=== PATIENT | female | born 1980 | race Caucasian/White ===

== ENCOUNTER → 2017-04-07 | Outpatient (CLI) | payer BC ==
[2017-04-07 17:06] LABS: MICROSCOPIC INDICATED? MAN YES (NO)
[2017-04-07 17:08] LABS: BASO # 0.1 10^3/uL (0.0-0.2); BASO % 0.5 % (0.0-1.0); EOS # 0.1 10^3/uL (0.0-0.50); EOS % 0.7 % (0.0-3.0); IMMATURE GRANULOCYTE # 0.2 10^3/uL (0-0); IMMATURE GRANULOCYTE % 1.2 % (0-0); LYMPH # 2.4 10^3/uL (1.5-4.5); MEAN CORPUSCULAR HEMOGLOBIN 28.1 pg (27.0-33.0); MEAN CORPUSCULAR HGB CONC 32.1 g/dl (32.0-36.5); MEAN CORPUSCULAR VOLUME 87.5 fl (80.0-96.0); MONO # 0.8 10^3/uL (0.0-0.8); MONO % 5.7 % (0.0-5.0); NEUTROPHILS % 73.9 % (36.0-66.0); PLATELET COUNT, AUTOMATED 338 10^3/uL (150-450); RED CELL DISTRIBUTION WIDTH 12.9 % (11.5-14.5); WHITE BLOOD COUNT 13.5 10^3/uL (4.0-10.0)
[2017-04-07 17:17] LABS: ALBUMIN 4.2 GM/DL (3.2-5.2); ALBUMIN/GLOBULIN RATIO 1.17 (1.00-1.93); ALKALINE PHOSPHATASE 70 U/L (45-117); ALT/SGPT 45 U/L (12-78); ANION GAP 6 MEQ/L (8-16); AST/SGOT 19 U/L (7-37); BACTERIA, URINE SMALL AMOUNT; BILIRUBIN,TOTAL 0.3 MG/DL (0.2-1.0); BLOOD UREA NITROGEN 17 MG/DL (7-18); CALCIUM LEVEL 9.3 MG/DL (8.5-10.1); CARBON DIOXIDE LEVEL 28 MEQ/L (21-32); CHLORIDE LEVEL 104 MEQ/L (98-107); CREATININE FOR GFR 0.78 MG/DL (0.55-1.02); GLOMERULAR FILTRATION RATE > 60.0 (>60); GLUCOSE, FASTING 92 MG/DL (70-105); HYALINE CAST, URINE NONE SEEN /lpf (0-1); MICROSCOPIC EXAM PERFORMED; POTASSIUM SERUM 4.8 MEQ/L (3.5-5.1); RBC, URINE 0-1 /hpf (0-3); SODIUM LEVEL 138 MEQ/L (136-145); SQUAMOUS EPITHELIAL CELL URINE SMALL AMOUNT /hpf (SMALL AMT); TOTAL PROTEIN 7.8 GM/DL (6.4-8.2); WBC, URINE NONE SEEN /hpf (0-3)
== END ==
LOC: M WUC 11:17
DX: R10.32 Left lower quadrant pain (principal)
CPT/HCPCS: 80053

== ENCOUNTER → 2017-04-07 | Outpatient (CLI) | payer OTHER ==
[~2017-04-07] MED LIST: GASTROGRAFIN SOLUTION 30ML (Q9963) As Ordered; ISOVUE-370 76% 100ML VIAL (Q9967) As Ordered
== END ==
LOC: M RAD 12:23
DX: R10.9 Unspecified abdominal pain (principal)

== ENCOUNTER 2017-06-10 07:54 | Day surgery (SDC) | payer OTHER ==
[2017-06-10] MEDS ORDERED: PROPOFOL 200 MG/20 ML VIAL As Ordered (08:05)
[2017-06-10] MEDS ORDERED: KETOROLAC 60 MG/2 ML VIAL (J1885) As Ordered (08:05)
[2017-06-10] MEDS ORDERED: GLYCOPYRROLATE INJ 0.2 MG/ML 2 ML VIAL As Ordered (08:05)
[2017-06-10] MEDS ORDERED: dexameTHASONE 4 MG/ML 1ML VIAL (J1100) As Ordered (08:05)
[2017-06-10] MEDS ORDERED: ONDANSETRON 4MG/2ML VIAL (J2405) As Ordered (08:05)
[2017-06-10] MEDS ORDERED: LIDOCAINE 2% INJ 100 MG/5 ML SDV (FOR ANES.) As Ordered (08:05)
[2017-06-10] MEDS ORDERED: ROCURONIUM BROMIDE 50 MG/5 ML VIAL As Ordered (08:05)
[2017-06-10] MEDS ORDERED: NEOSTIGMINE 10 MG/10 ML VIAL (J2710) As Ordered (08:05)
[2017-06-10] MEDS ORDERED: fentaNYL 100 MCG/2 ML INJECTION (J3010) As Ordered (08:06)
[2017-06-10] MEDS ORDERED: MIDAZOLAM INJ 2 MG/2 ML VIAL (J2250) As Ordered (08:06)
[2017-06-10] MEDS: LR 1,000 ML IV ×3 (08:50→16:25)
[2017-06-10] MEDS ORDERED: HYDROmorphone HCL 2 MG/ML 1ML VIAL (J1170) As Ordered (08:54)
[2017-06-10 09:08] LABS: CONTROL LINE UCG INT CTR LINE PRESENT; URINE PREG TEST NEGATIVE (NEGATIVE)
[2017-06-10] MEDS: BUPIVACAINE LIPOSOME/PF 1.3% 20 ML VIAL (13.3MG/ML)(EXPAREL) As Ordered (11:01)
[2017-06-10] MEDS: BUPIVACAINE HCL 0.25% 30 ML VIAL As Ordered (11:02)
[2017-06-10] MEDS ORDERED: IBUPROFEN 600 MG TAB PO (11:45)
[2017-06-10] MEDS ORDERED: MORPHINE 10 MG/ML 1ML VIAL (J2270) IV (11:45)
[2017-06-10] MEDS: PERCOCET 5MG/325MG TAB PO ×2 (11:45→12:16)
[2017-06-10] MEDS ORDERED: ACETAMINOPHEN TAB 650MG DOSE (2X325MG) PO (11:45)
[2017-06-10] MEDS: fentaNYL 100 MCG/2 ML INJECTION (J3010) IV ×4 (11:57→12:15)
[2017-06-10] MEDS: ONDANSETRON 4MG/2ML VIAL (J2405) IV (12:15)
[2017-06-10] MEDS: METOCLOPRAMIDE INJ 10MG/2ML VIAL (J2765) IV (12:37)
[2017-06-10] MEDS: PROMETHAZINE INJ 25 MG/ML VIAL (J2550) IV (16:17)
[2017-06-10] MEDS: NORCO, ANEXSIA 5/325MG TABLET (HYDROcodone/ACETAMINOPHEN) PO (19:00)
== END 2017-06-10 20:00 | disposition home or self-care (01) ==
LOC: M OPP 07:54 → M SDC 07:54
DX: K80.18 Calculus of gallbladder with other cholecystitis without obstruction (principal); I10 Essential (primary) hypertension; F32.9 Major depressive disorder, single episode, unspecified; F41.9 Anxiety disorder, unspecified; E66.9 Obesity, unspecified; M41.9 Scoliosis, unspecified; Z79.899 Other long term (current) drug therapy
CPT/HCPCS: 47562

== ENCOUNTER 2017-06-13 17:32 | Inpatient (IN) | payer OTHER ==
[2017-06-13 18:08] LABS: BASO # 0.1 10^3/uL (0.0-0.2); BASO % 0.3 % (0.0-1.0); EOS # 0.1 10^3/uL (0.0-0.50); EOS % 0.5 % (0.0-3.0); HEMOGLOBIN 13.3 g/dl (12.0-16.0); IMMATURE GRANULOCYTE % 0.5 % (0-3.0); LYMPH # 2.3 10^3/uL (1.5-4.5); LYMPH % 13.4 % (24.0-44.0); MEAN CORPUSCULAR HEMOGLOBIN 28.2 pg (27.0-33.0); MEAN CORPUSCULAR HGB CONC 33.3 g/dl (32.0-36.5); MEAN CORPUSCULAR VOLUME 84.9 fl (80.0-96.0); MONO # 1.3 10^3/uL (0.0-0.8); MONO % 7.5 % (0.0-5.0); NEUTROPHILS # 13.2 10^3/uL (1.8-7.7); NEUTROPHILS % 77.8 % (36.0-66.0); PLATELET COUNT, AUTOMATED 296 10^3/uL (150-450); RED BLOOD COUNT 4.71 10^6/uL (4.00-5.40); RED CELL DISTRIBUTION WIDTH 12.2 % (11.5-14.5); WHITE BLOOD COUNT 16.9 10^3/uL (4.0-10.0)
[2017-06-13 18:20] LABS: INR 1.01; PROTHROMBIN TIME 13.4 SECONDS (12.4-14.5)
[2017-06-13 18:21] LABS: PARTIAL THROMBOPLASTIN TIME 28.2 SECONDS (26.8-37.9)
[2017-06-13] MEDS: NS 1,000 ML IV (19:26)
[2017-06-13] MEDS: PROMETHAZINE INJ 25 MG/ML VIAL (J2550) IV (19:30)
[2017-06-13] MEDS: HYDROmorphone HCL 1 MG/ML SYRINGE (J1170) IV ×2 (19:31→21:03)
[2017-06-13 20:51] LABS: CONTROL LINE HCG INT CTR LINE PRESENT; HCG, SERUM QUALITATIVE NEGATIVE (NEGATIVE)
[2017-06-13] MEDS ORDERED: ISOVUE-370 76% 100ML VIAL (Q9967) As Ordered (20:57)
[2017-06-13 21:00] LABS: ALBUMIN 3.9 GM/DL (3.2-5.2); ALBUMIN/GLOBULIN RATIO 1.05 (1.00-1.93); ALKALINE PHOSPHATASE 83 U/L (45-117); ALT/SGPT 93 U/L (12-78); ANION GAP 6 MEQ/L (8-16); AST/SGOT 56 U/L (7-37); BILIRUBIN,DIRECT 0.4 MG/DL (0.0-0.2); BILIRUBIN,TOTAL 1.1 MG/DL (0.2-1.0); BLOOD UREA NITROGEN 11 MG/DL (7-18); CALCIUM LEVEL 8.8 MG/DL (8.5-10.1); CARBON DIOXIDE LEVEL 30 MEQ/L (21-32); CHLORIDE LEVEL 104 MEQ/L (98-107); CPK CREATINE PHOSPHOKINASE 41 U/L (26-192); CREATININE FOR GFR 0.76 MG/DL (0.55-1.30); GLOMERULAR FILTRATION RATE > 60.0 (>60); GLUCOSE, FASTING 109 MG/DL (70-100); LIPASE 63 U/L (73-393); MB/CK RELATIVE INDEX 2.43 (< OR =4); POTASSIUM SERUM 4.3 MEQ/L (3.5-5.1); SODIUM LEVEL 140 MEQ/L (136-145); TOTAL PROTEIN 7.6 GM/DL (6.4-8.2); TROPONIN I < 0.02 NG/ML (< 0.10)
[2017-06-13] MEDS: DULoxetine 30 MG CAP (CYMBALTA) PO (21:00)
[2017-06-13] MEDS: PIPERACILLIN/TAZOBACTAM SOD 4.5 GM in D5W MINI-BAG PLUS 50 ML IV (22:45)
[2017-06-13] MEDS: VANCOMYCIN HCL 1,000 MG, VIAL MATE ADAPTER 1 EACH in D5W 250 ML IV (22:45)
[2017-06-14] MEDS: HYDROmorphone HCL 1 MG/ML SYRINGE (J1170) IV (00:13)
[2017-06-14] MEDS: NS 1,000 ML IV ×3 (00:16→17:00)
[2017-06-14] MEDS ORDERED: ACETAMINOPHEN TAB 650MG DOSE (2X325MG) PO (00:30)
[2017-06-14 00:50] LABS: C REACTIVE PROTEIN QUANTITATIV 1.53 MG/DL (0.00-0.30)
[2017-06-14] MEDS: PERCOCET 5MG/325MG TAB PO ×3 (02:05→19:18)
[2017-06-14] MEDS: ONDANSETRON 4MG/2ML VIAL (J2405) IV ×3 (02:06→19:17)
[2017-06-14 02:26] LABS: ERYTHROCYTE SEDIMENTATION RATE 45 mm/hr (0-20)
[2017-06-14 02:28] LABS: LACTIC ACID SEPSIS PROTOCOL 1.6 MMOL/L (0.4-2.0)
[2017-06-14] MEDS: MORPHINE 4 MG/ML 1ML VIAL (J2270) IV ×7 (03:18→21:45)
[2017-06-14 04:23] LABS: ALBUMIN 3.2 GM/DL (3.2-5.2); ALBUMIN/GLOBULIN RATIO 0.86 (1.00-1.93); ALKALINE PHOSPHATASE 74 U/L (45-117); ALT/SGPT 94 U/L (12-78); AST/SGOT 50 U/L (7-37); BILIRUBIN,DIRECT 0.7 MG/DL (0.0-0.2); C REACTIVE PROTEIN QUANTITATIV 4.32 MG/DL (0.00-0.30); TOTAL PROTEIN 6.9 GM/DL (6.4-8.2)
[2017-06-14 04:46] LABS: BILIRUBIN,TOTAL 1.7 MG/DL (0.2-1.0)
[2017-06-14] MEDS: VANCOMYCIN HCL 1,000 MG, VIAL MATE ADAPTER 1 EACH in D5W 250 ML IV ×3 (05:29→21:44)
[2017-06-14] MEDS: PIPERACILLIN/TAZOBACTAM SOD 3.375 GM in APPROPRIATE DILUENT 1 EA IV ×3 (06:39→18:29)
[2017-06-14] MEDS: HEPARIN SOD (PORCINE) 5000 UNITS/ML VIAL SC ×3 (06:39→21:44)
[2017-06-14] MEDS ORDERED: PIPERACILLIN/TAZOBACTAM SOD 3.375 GM in APPROPRIATE DILUENT 1 EA IV (07:00)
[2017-06-14 08:44] LABS: ABG BASE EXCESS -1.3 (-2.0-2.0); ABG HCO3 23.3 MEQ/L (22.0-26.0); ABG O2 SATURATION 94.9 % (95.0-99.0); ABG PARTIAL PRESSURE CO2 38.5 mmHg (35.0-45.0); ABG PARTIAL PRESSURE O2 74.7 mmHg (75.0-100.0); ABG STANDARD HCO3 23.4 MEQ/L (22.0-26.0); ABG TOTAL CO2 24.4 MEQ/L (22.0-29.0); ABG pH (ARTERIAL) 7.399 UNITS (7.350-7.450)
[2017-06-14 10:12] LABS: BASO % 0.3 % (0.0-1.0); EOS # 0.1 10^3/uL (0.0-0.50); EOS % 0.9 % (0.0-3.0); HEMATOCRIT 39.3 % (36.0-47.0); HEMOGLOBIN 12.6 g/dl (12.0-16.0); LYMPH # 0.9 10^3/uL (1.5-4.5); MEAN CORPUSCULAR HEMOGLOBIN 27.9 pg (27.0-33.0); MEAN CORPUSCULAR HGB CONC 32.1 g/dl (32.0-36.5); MEAN CORPUSCULAR VOLUME 86.9 fl (80.0-96.0); MONO # 1.3 10^3/uL (0.0-0.8); MONO % 8.4 % (0.0-5.0); NEUTROPHILS # 13.2 10^3/uL (1.8-7.7); NEUTROPHILS % 83.4 % (36.0-66.0); PLATELET COUNT, AUTOMATED 249 10^3/uL (150-450); RED BLOOD COUNT 4.52 10^6/uL (4.00-5.40); RED CELL DISTRIBUTION WIDTH 12.5 % (11.5-14.5); WHITE BLOOD COUNT 15.7 10^3/uL (4.0-10.0)
[2017-06-14 10:54] LABS: ANION GAP 7 MEQ/L (8-16); BLOOD UREA NITROGEN 10 MG/DL (7-18); CALCIUM LEVEL 8.3 MG/DL (8.5-10.1); CARBON DIOXIDE LEVEL 26 MEQ/L (21-32); CHLORIDE LEVEL 106 MEQ/L (98-107); CPK CREATINE PHOSPHOKINASE 40 U/L (26-192); CREATININE FOR GFR 0.76 MG/DL (0.55-1.30); GLOMERULAR FILTRATION RATE > 60.0 (>60); GLUCOSE, FASTING 114 MG/DL (70-100); POTASSIUM SERUM 4.1 MEQ/L (3.5-5.1); SODIUM LEVEL 139 MEQ/L (136-145); TROPONIN I < 0.02 NG/ML (< 0.10)
[2017-06-14] MEDS: DULoxetine 30 MG CAP (CYMBALTA) PO (21:43)
[2017-06-15] MEDS: PIPERACILLIN/TAZOBACTAM SOD 3.375 GM in APPROPRIATE DILUENT 1 EA IV ×5 (00:03→19:22)
[2017-06-15] MEDS: PERCOCET 5MG/325MG TAB PO ×5 (00:13→21:38)
[2017-06-15] MEDS: NS 1,000 ML IV ×4 (01:46→20:23)
[2017-06-15] MEDS: VANCOMYCIN HCL 1,000 MG, VIAL MATE ADAPTER 1 EACH in D5W 250 ML IV ×3 (04:20→21:36)
[2017-06-15 04:42] LABS: HEMATOCRIT 39.5 % (36.0-47.0); HEMOGLOBIN 12.5 g/dl (12.0-16.0); MEAN CORPUSCULAR HEMOGLOBIN 28.2 pg (27.0-33.0); MEAN CORPUSCULAR HGB CONC 31.6 g/dl (32.0-36.5); MEAN CORPUSCULAR VOLUME 89.2 fl (80.0-96.0); PLATELET COUNT, AUTOMATED 205 10^3/uL (150-450); RED BLOOD COUNT 4.43 10^6/uL (4.00-5.40); RED CELL DISTRIBUTION WIDTH 12.5 % (11.5-14.5); WHITE BLOOD COUNT 14.7 10^3/uL (4.0-10.0)
[2017-06-15 05:08] LABS: ALBUMIN 2.9 GM/DL (3.2-5.2); ALBUMIN/GLOBULIN RATIO 0.74 (1.00-1.93); ALKALINE PHOSPHATASE 83 U/L (45-117); ALT/SGPT 79 U/L (12-78); ANION GAP 5 MEQ/L (8-16); AST/SGOT 33 U/L (7-37); BILIRUBIN,DIRECT 1.3 MG/DL (0.0-0.2); BILIRUBIN,TOTAL 2.2 MG/DL (0.2-1.0); BLOOD UREA NITROGEN 8 MG/DL (7-18); CALCIUM LEVEL 8.3 MG/DL (8.5-10.1); CARBON DIOXIDE LEVEL 29 MEQ/L (21-32); CHLORIDE LEVEL 107 MEQ/L (98-107); CREATININE FOR GFR 0.72 MG/DL (0.55-1.30); GLOMERULAR FILTRATION RATE > 60.0 (>60); GLUCOSE, FASTING 83 MG/DL (70-100); SODIUM LEVEL 141 MEQ/L (136-145); TOTAL PROTEIN 6.8 GM/DL (6.4-8.2)
[2017-06-15] MEDS: HEPARIN SOD (PORCINE) 5000 UNITS/ML VIAL SC (06:06)
[2017-06-15] MEDS: ONDANSETRON 4MG/2ML VIAL (J2405) IV ×2 (08:48→22:16)
[2017-06-15] MEDS ORDERED: PROPOFOL 200 MG/20 ML VIAL As Ordered (18:12)
[2017-06-15] MEDS ORDERED: ROCURONIUM BROMIDE 50 MG/5 ML VIAL As Ordered (18:12)
[2017-06-15] MEDS ORDERED: MIDAZOLAM INJ 2 MG/2 ML VIAL (J2250) As Ordered (18:12)
[2017-06-15] MEDS ORDERED: LIDOCAINE 2% INJ 100 MG/5 ML SDV (FOR ANES.) As Ordered (18:12)
[2017-06-15] MEDS ORDERED: fentaNYL 100 MCG/2 ML INJECTION (J3010) As Ordered ×2 (18:13→19:48)
[2017-06-15] MEDS ORDERED: GLYCOPYRROLATE INJ 0.2 MG/ML 2 ML VIAL As Ordered ×2 (19:04→19:26)
[2017-06-15] MEDS ORDERED: ONDANSETRON 4MG/2ML VIAL (J2405) As Ordered (19:05)
[2017-06-15] MEDS ORDERED: NEOSTIGMINE 10 MG/10 ML VIAL (J2710) As Ordered (19:05)
[2017-06-15] MEDS: ISOVUE-300 61% 50ML VIAL (Q9967) As Ordered (19:07)
[2017-06-15] MEDS: ZOSYN 3.375 GM VIAL (J2543) As Ordered (19:20)
[2017-06-15] MEDS: fentaNYL 100 MCG/2 ML INJECTION (J3010) IV ×4 (19:48→20:12)
[2017-06-15] MEDS ORDERED: METOCLOPRAMIDE INJ 10MG/2ML VIAL (J2765) IV (20:00)
[2017-06-15] MEDS: LR 1,000 ML IV (20:00)
[2017-06-15] MEDS ORDERED: ONDANSETRON 4MG/2ML VIAL (J2405) IV (20:00)
[2017-06-15] MEDS: MORPHINE 10 MG/ML 1ML VIAL (J2270) IV (20:37)
[2017-06-15] MEDS: DULoxetine 30 MG CAP (CYMBALTA) PO (21:00)
[2017-06-15] MEDS: MORPHINE 4 MG/ML 1ML VIAL (J2270) IV (22:32)
[2017-06-16] MEDS: PIPERACILLIN/TAZOBACTAM SOD 3.375 GM in APPROPRIATE DILUENT 1 EA IV ×4 (00:25→18:14)
[2017-06-16] MEDS: MORPHINE 4 MG/ML 1ML VIAL (J2270) IV ×3 (00:26→06:16)
[2017-06-16] MEDS: LR 1,000 ML IV ×3 (00:26→20:55)
[2017-06-16 04:53] LABS: BASO # 0.1 10^3/uL (0.0-0.2); BASO % 0.4 % (0.0-1.0); EOS # 0.3 10^3/uL (0.0-0.50); EOS % 2.2 % (0.0-3.0); HEMATOCRIT 36.7 % (36.0-47.0); HEMOGLOBIN 11.8 g/dl (12.0-16.0); IMMATURE GRANULOCYTE % 0.9 % (0-3.0); LYMPH # 2.4 10^3/uL (1.5-4.5); LYMPH % 16.9 % (24.0-44.0); MEAN CORPUSCULAR HEMOGLOBIN 28.4 pg (27.0-33.0); MEAN CORPUSCULAR HGB CONC 32.2 g/dl (32.0-36.5); MEAN CORPUSCULAR VOLUME 88.4 fl (80.0-96.0); MONO # 1.4 10^3/uL (0.0-0.8); MONO % 10.2 % (0.0-5.0); NEUTROPHILS # 9.7 10^3/uL (1.8-7.7); NEUTROPHILS % 69.4 % (36.0-66.0); PLATELET COUNT, AUTOMATED 226 10^3/uL (150-450); RED BLOOD COUNT 4.15 10^6/uL (4.00-5.40); RED CELL DISTRIBUTION WIDTH 12.4 % (11.5-14.5)
[2017-06-16 05:27] LABS: ALBUMIN 2.7 GM/DL (3.2-5.2); ALBUMIN/GLOBULIN RATIO 0.71 (1.00-1.93); ALKALINE PHOSPHATASE 100 U/L (45-117); ALT/SGPT 63 U/L (12-78); ANION GAP 7 MEQ/L (8-16); AST/SGOT 27 U/L (7-37); BILIRUBIN,DIRECT 0.9 MG/DL (0.0-0.2); BILIRUBIN,TOTAL 1.5 MG/DL (0.2-1.0); BLOOD UREA NITROGEN 7 MG/DL (7-18); CALCIUM LEVEL 8.2 MG/DL (8.5-10.1); CARBON DIOXIDE LEVEL 28 MEQ/L (21-32); CHLORIDE LEVEL 108 MEQ/L (98-107); CREATININE FOR GFR 0.67 MG/DL (0.55-1.30); GLOMERULAR FILTRATION RATE > 60.0 (>60); GLUCOSE, FASTING 81 MG/DL (70-100); MAGNESIUM LEVEL 1.8 MG/DL (1.8-2.4); POTASSIUM SERUM 3.8 MEQ/L (3.5-5.1); SODIUM LEVEL 143 MEQ/L (136-145); TOTAL PROTEIN 6.5 GM/DL (6.4-8.2)
[2017-06-16] MEDS: ONDANSETRON 4MG/2ML VIAL (J2405) IV ×3 (06:05→20:55)
[2017-06-16] MEDS: PERCOCET 5MG/325MG TAB PO (13:49)
[2017-06-16] MEDS: DULoxetine 30 MG CAP (CYMBALTA) PO (20:29)
[2017-06-16] MEDS: KETOROLAC 30 MG/ML VIAL (J1885) IV (22:23)
[2017-06-17] MEDS: PIPERACILLIN/TAZOBACTAM SOD 3.375 GM in APPROPRIATE DILUENT 1 EA IV ×3 (01:03→12:31)
[2017-06-17] MEDS: LR 1,000 ML IV (06:41)
[2017-06-17] MEDS: KETOROLAC 30 MG/ML VIAL (J1885) IV (06:55)
[2017-06-17] MEDS ORDERED: IBUPROFEN 600 MG TAB PO (09:15)
[2017-06-17] MEDS ORDERED: MORPHINE 4 MG/ML 1ML VIAL (J2270) IV (09:15)
[2017-06-17] MEDS ORDERED: LOSARTAN 25 MG TAB PO (21:00)
== END 2017-06-17 16:47 | disposition home or self-care (01) | DRG 395 ==
LOC: M ED INP 06-14 00:16 → M PED 06-16 12:12 → M ICU 06-14 03:00 → M ED 17:32
PROC: 0F798DZ Dilation of Common Bile Duct with Intraluminal Device, Via Natural or Artificial Opening Endoscopic (ICD-10-PCS; principal; 2017-06-15 14:07)
DX: K91.89 Other postprocedural complications and disorders of digestive system (principal); I10 Essential (primary) hypertension; F41.9 Anxiety disorder, unspecified; F32.9 Major depressive disorder, single episode, unspecified; Z90.49 Acquired absence of other specified parts of digestive tract

== ENCOUNTER → 2017-08-08 | Outpatient (CLI) | payer OTHER | LOC: M WUC 09:22 | DX: Z96.89 Presence of other specified functional implants (principal); K83.8 Other specified diseases of biliary tract | CPT/HCPCS: 74018 ==

== ENCOUNTER → 2017-09-07 | Day surgery (SDC) | payer OTHER ==
[~2017-09-07] MED LIST changes: -GASTROGRAFIN SOLUTION 30ML (Q9963) As Ordered; -ISOVUE-370 76% 100ML VIAL (Q9967) As Ordered; +LIDOCAINE 2% INJ 100 MG/5 ML SDV (FOR ANES.) As Ordered; +NS 1,000 ML IV; +PROPOFOL 200 MG/20 ML VIAL As Ordered; +fentaNYL 100 MCG/2 ML INJECTION (J3010) As Ordered
== END | disposition home or self-care (01) ==
LOC: M OPP 11:06
DX: Z46.59 Encounter for fitting and adjustment of other gastrointestinal appliance and device (principal); K91.89 Other postprocedural complications and disorders of digestive system; I10 Essential (primary) hypertension; F41.9 Anxiety disorder, unspecified; F32.9 Major depressive disorder, single episode, unspecified; M41.9 Scoliosis, unspecified; Z79.899 Other long term (current) drug therapy; Z90.49 Acquired absence of other specified parts of digestive tract; Z86.14 Personal history of Methicillin resistant Staphylococcus aureus infection
CPT/HCPCS: 43247

== ENCOUNTER → 2019-04-30 | Outpatient (CLI) | payer OTHER ==
[~2019-04-30] MED LIST changes: +DOCU100C16 PO; +DULO1CAP6; +DULO1CAP6 PO; +HYDR-3713 PO; +IBUPOTC PO; -LIDOCAINE 2% INJ 100 MG/5 ML SDV (FOR ANES.) As Ordered; +LOSA25TA14; +LOSA25TA14 PO; -NS 1,000 ML IV; -PROPOFOL 200 MG/20 ML VIAL As Ordered; +VICO5TAB17 PO; -fentaNYL 100 MCG/2 ML INJECTION (J3010) As Ordered
--- NOTE | 2019-04-30 15:19 | REP ---
Head CT without contrast: History: Headache. Comparison study: No comparison study. CT findings: Bone window settings demonstrate an intact bony calvarium. There is no evidence of skull fracture or incidental bony calvarial lesion. The visualized paranasal sinuses appear clear. No intraorbital abnormality is seen. On soft tissue window setting images; the lateral, third, and fourth ventricles are normal in size and position. Faust-white differentiation pattern is normal above and below the tentorium. There are is no evidence of intracranial hemorrhage. No mass, edema, infarction, or midline shift is seen. No extra-axial fluid collection is appreciated. Impression: Negative noncontrast head CT. Electronically Signed by Tyler Espinal MD 04/30/2019 03:11 P
== END ==
LOC: M RAD 13:59
PROVIDERS: ATTEND Family Medicine
DX: R51 Headache (principal)

== ENCOUNTER → 2019-06-25 | Outpatient (REF) | payer OTHER ==
[2019-06-25 14:05] LABS: RHEUMATOID FACTOR QUANT < 10.0 IU/ML (<15.0); TOTAL PROTEIN 7.5 GM/DL (6.4-8.2)
[2019-06-25 14:06] LABS: TOTAL 25(OH) VITAMIN D 26.8 NG/ML (30.0-100.0); VITAMIN B12 LEVEL 507 PG/ML
[2019-06-25 14:07] LABS: FOLATE 15.2 NG/ML
[2019-06-25 14:38] LABS: HEMOGLOBIN A1c 5.9 %
[2019-06-26 10:50] LABS: ALBUMIN 4.32 GM/DL (3.29-5.55); ALBUMIN % 57.6 % (55.8-66.1); ALPHA-1-GLOBULIN % 4.3 % (2.9-4.9); ALPHA-1-GLOBULINS 0.32 GM/DL (0.17-0.41); ALPHA-2-GLOBULINS 0.85 GM/DL (0.42-0.99); ALPHA-2-GLOBULINS % 11.3 % (7.1-11.8); BETA-1-GLOBULINS 0.44 GM/DL (0.28-0.60); BETA-1-GLOBULINS % 5.9 % (4.7-7.2); BETA-2-GLOBULINS 0.41 GM/DL (0.19-0.55); BETA-2-GLOBULINS % 5.5 % (3.2-6.5); GAMMA GLOBULIN % 15.4 % (11.1-18.8); GAMMA GLOBULINS 1.16 GM/DL (0.65-1.58)
[2019-06-26 10:51] LABS: SPEP INTERPRETATION SEE COMM
== END ==
LOC: M LABNEURO 09:22
PROVIDERS: ATTEND Psychiatry & Neurology Neurology
DX: G62.9 Polyneuropathy, unspecified (principal)

== ENCOUNTER → 2019-08-17 | Outpatient (CLI) | payer OTHER ==
--- NOTE | 2019-08-22 07:10 | SLEEPCENT ---
DATE OF STUDY: 08/17/2019 ORDERED BY: Darvin Dang Nocturnal polysomnography was performed for evaluation of sleep physiology in this patient with history of excessive somnolence, morning headaches and nonrestorative sleep. 8 hours of data were reviewed. There were 335 minutes of sleep identified. Sleep latency was prolonged at 71 minutes. Rapid eye movement (REM) latency was prolonged at 241 minutes. Sleep architecture was fragmented with poor progression. There was 1 REM cycle. Overall sleep efficiency was 70.0%. The patient's electrocardiogram showed a sinus rhythm with an average heart rate of 84 beats per minute. Frequent PVCs were noted at intervals. Electroencephalogram (EEG) showed normal waveforms for awake and sleep. There were 184 respiratory events identified of 10 seconds in duration or greater for an apnea-hypopnea index of 33. The events were primarily obstructive, 20 central and 6 mixed apneas were also seen. The events were not exclusive to sleep stage nor body posture. Arousals from respiratory events occurred 30.2 times per hour and oxygen desaturations were seen into the low 80s. There was minimal activity in the limb leads. Remaining measures of sleep physiology were normal. IMPRESSION: Severe obstructive sleep apnea syndrome (G47.33). Apnea-hypopnea index 33. RECOMMENDATION: The patient should be encouraged to return to the sleep disorder center for pressure therapy. In the interim, alcohol and sedative avoidance should be practiced and caution exercised during the operation of motor vehicles.
== END ==
LOC: M SLEEP 20:00
PROVIDERS: ATTEND Physician Assistant
DX: G47.33 Obstructive sleep apnea (adult) (pediatric) (principal)

== ENCOUNTER → 2019-10-12 | Outpatient (CLI) | payer OTHER ==
--- NOTE | 2019-10-25 16:50 | SLEEPCENT ---
DATE OF PROCEDURE: 10/12/2019 ORDERED BY: Valentin Dang PA-C Nocturnal polysomnography was performed for the titration of pressure therapy in this patient with obstructive sleep apnea syndrome. Apnea-hypopnea index of 33. For testing the patient was fit with a ResMed Air Touch F20 full face mask of small size, 4 cm of water pressure were applied to the circuit and the lights were extinguished. 7 hours and 43 minutes of data were reviewed. There were 421.5 minutes of sleep identified. Sleep latency was mildly prolonged at 17.5 minutes. Rapid eye movement (REM) latency was normal at 87.5 minutes. Sleep architecture was good with three REM cycles. Overall sleep efficiency was 92.7%. The patient's electrocardiogram showed a sinus rhythm with an average heart rate of 72 beats per minute. EEG showed mild coarsening in background, otherwise normal waveforms for awake and sleep. Respiratory events were fully palliated with continuous positive airway pressure (CPAP) at a pressure of +8, and remaining measures of sleep physiology were fairly normal. IMPRESSION: Obstructive sleep apnea syndrome (G47.33). RECOMMENDATIONS: Nightly use of pressure therapy 8 cm of water.
== END ==
LOC: M SLEEP 20:00
PROVIDERS: ATTEND Physician Assistant
DX: G47.33 Obstructive sleep apnea (adult) (pediatric) (principal)

== ENCOUNTER → 2021-04-08 | Outpatient (CLI) | payer OTHER ==
--- NOTE | 2021-04-08 12:55 | REP ---
INDICATION: ENLARGED LYMPH NODES. COMPARISON: 11/07/2020 from an outside institution TECHNIQUE: Real-time sonographic evaluation of the right neck soft tissues. FINDINGS: The previously identified 2.7 x 1.5 x 1.1 cm sized right neck lymph node seen on the prior exam today measures 3.4 x 1.2 x 1.3 cm. Morphologically, it appears unchanged from the prior exam. Once again, other solid nodules are identified. IMPRESSION: The prominent right neck solid nodule consistent with an enlarged lymph node has increased. Once again, the exact etiology is uncertain. Contrast-enhanced neck CT is recommended. <Electronically signed by Johnathon Herrera > 04/08/21 0025
== END ==
LOC: M RAD 12:14
PROVIDERS: ATTEND Otolaryngology
DX: R59.9 Enlarged lymph nodes, unspecified (principal)

== ENCOUNTER → 2021-05-13 | Outpatient (CLI) | payer OTHER ==
[~2021-05-13] MED LIST changes: +LIDOCAINE 1% MDV 20ML VIAL As Ordered ONE; +LOSA25TA13; +LOSA25TA13 PO; -LOSA25TA14; -LOSA25TA14 PO
[2021-05-13 12:20] VITALS: BP 136/86
== END ==
LOC: M IRPRO 10:53
PROVIDERS: ATTEND Otolaryngology
DX: R59.9 Enlarged lymph nodes, unspecified (principal)

== ENCOUNTER → 2021-11-23 | Outpatient (CLI) | payer OTHER ==
[~2021-11-23] MED LIST changes: -LIDOCAINE 1% MDV 20ML VIAL As Ordered ONE
== END ==
LOC: M RAD 15:44
PROVIDERS: ATTEND Otolaryngology
DX: R59.9 Enlarged lymph nodes, unspecified (principal)

== ENCOUNTER → 2022-11-23 | Outpatient (CLI) | payer OTHER | LOC: M RAD 09:47 | PROVIDERS: ATTEND Physician Assistant | DX: R59.9 Enlarged lymph nodes, unspecified (principal) ==